=== PATIENT | female | born 1960 | race Two or more races ===

== ENCOUNTER 2020-08-26 20:34 | Inpatient (IN) | payer BC ==
[~2020-08-26] VITALS: Ht 160 cm; Wt 64.6 kg
--- NOTE | 2020-08-26 20:37 | NUR ---
Dr. Diaz at bedside for MSE.
[2020-08-26] MEDS ORDERED: ESCI10TA PO (20:49)
[2020-08-26] MEDS ORDERED: CHOL10002 PO (20:49)
[2020-08-26] MEDS ORDERED: OMEG1CAP18 PO (20:49)
[2020-08-26] MEDS ORDERED: ALPR0.5T8 PO (20:49)
[2020-08-26] MEDS ORDERED: BACL20TA PO (20:49)
[2020-08-26] MEDS ORDERED: MECL-159 PO (20:49)
[2020-08-26] MEDS ORDERED: LEVO88TA5 PO (20:49)
[2020-08-26] MEDS ORDERED: CYAN100T44 PO (20:49)
[2020-08-26] MEDS ORDERED: ASPI81TA31 PO (20:49)
--- NOTE | 2020-08-26 20:50 | NUR ---
Xray at bedside.
--- NOTE | 2020-08-26 21:16 | NUR ---
Patient unable to provide urine at this time, assisted to commode for bowel movement.
[2020-08-26] MEDS ORDERED: AZITHROMYCIN IV 500 MG in IV DEXTROSE 5% 250 ML IV ONE (21:30)
[2020-08-26] MEDS ORDERED: CEFTRIAXONE 1 G in IV DEXTROSE 5% 50 ML IV ONE (21:30)
[2020-08-26 21:32] LABS: BASOPHILS % (AUTO) 0.3 % (0.0-2.0); CREATININE 0.6 mg/dL (0.6-1.3); EOSINOPHILS # (AUTO) 0.4 K/uL (0.0-0.7); EOSINOPHILS % (AUTO) 2.6 % (0.0-7.0); HEMATOCRIT 38.2 % (31.2-41.9); HEMOGLOBIN 12.7 g/dL (10.9-14.3); LYMPHOCYTES # (AUTO) 2.3 K/uL (20.0-40.0); LYMPHOCYTES % (AUTO) 16.1 % (20.5-51.5); MEAN CORPUSCULAR HEMOGLOBIN 32.2 uug (24.7-32.8); MEAN CORPUSCULAR HGB CONC 33 g/dL (32.3-35.6); MEAN CORPUSCULAR VOLUME 96.6 fL (75.5-95.3); MONOCYTES # (AUTO) 0.9 K/uL (2.0-10.0); MONOCYTES % (AUTO) 6.2 % (0.0-11.0); NEUTROPHILS # (AUTO) 10.8 K/uL (1.8-8.9); NEUTROPHILS % (AUTO) 74.8 % (38.5-71.5); PLATELET COUNT (AUTO) 245 K/uL (179-408); POTASSIUM 3.3 mmol/L (3.5-5.1); RED BLOOD CELL COUNT(AUTO) 3.95 MIL/uL (3.63-4.92); WHITE BLOOD COUNT (AUTO) 14.4 K/uL (3.8-11.8)
--- NOTE | 2020-08-26 21:37 | NUR ---
Pt out of ER for CT.
[2020-08-26 21:38] LABS: BILIRUBIN,DIRECT 0.1 mg/dL (0.0-0.2); BILIRUBIN,TOTAL 0.4 mg/dL (0.2-1.0); TOTAL PROTEIN, SERUM 6.6 g/dL (6.4-8.2)
[2020-08-26] MEDS ORDERED: CEFTRIAXONE /D5W 50ML IVPB **ER PYXIS IV ONE (21:48)
[2020-08-26] MEDS ORDERED: AZITHROMYCIN 500MG/ D5W 250ML IVPB **ER PYXIS ONLY IV ONE (21:49)
--- NOTE | 2020-08-26 22:09 | NUR ---
Called [facility] for possible transfer, faxed facesheet and CT to .
[2020-08-26] MEDS ORDERED: ONDANSETRON 4 MG/2 ML VIAL IV ONE (22:15)
--- NOTE | 2020-08-26 22:20 | NUR ---
JENNIFER STARKS FROM [facility] CALLED BACK AND STATES DR LYMAN WILL RETURN CALL.
[2020-08-26] MEDS ORDERED: ONDANSETRON 4 MG/2 ML VIAL ONE (22:21)
--- NOTE | 2020-08-26 22:37 | NUR ---
[facility] FROM [facility] CALLED BACK CALLED AND STATED THAT DR LYMAN WILL NOT ACCEPT PATIENT.
--- NOTE | 2020-08-26 22:41 | NUR ---
CALLED [facility]. UNABLE TO ACCEPT PATIENT DUE TO MAX CAPACITY.
--- NOTE | 2020-08-26 22:46 | NUR ---
[facility] UNABLE TO ACCEPT PATIENT PER FÉLIX LORALITIGATION SPECIALIST OF [facility].
--- NOTE | 2020-08-26 23:18 | NUR ---
Called [facility] , spoke to Janett who will have neuro interventionalist speak to Dr Diaz.
--- NOTE | 2020-08-26 23:25 | NUR ---
[facility] unable to accept patient at this time due to max capacity.
--- NOTE | 2020-08-26 23:40 | NUR ---
Dr. Diaz speaking with [facility] Mc[facility] MD.
--- NOTE | 2020-08-26 23:42 | NUR ---
Called [facility]. Spoke to Venus from Transfer center who states they are at max capacity and unable to take patient at this time.
--- NOTE | 2020-08-26 23:54 | NUR ---
Received call back from Janett from [facility], no beds available, can't accept patient. made aware.
--- NOTE | 2020-08-27 00:15 | NUR ---
Called Dr. Tompkins @ , left voicemail.
--- NOTE | 2020-08-27 00:20 | NUR ---
Dr. Diaz speaking with Dr. Tompkins for neuro consult.
--- NOTE | 2020-08-27 00:26 | NUR ---
Called [facility] to page Hernando Baum DNP.
--- NOTE | 2020-08-27 00:32 | NUR ---
Dr. Diaz on panel call with Hernando Baum DNP. Patient accepted for admission to [facility], diagnosis: altered mental status, subarachnoid hemmorrhage.
[2020-08-27] MEDS ORDERED: Z GUARD REMEDY PASTE 57 GM TUBE TOP PRN (00:45)
[2020-08-27] MEDS ORDERED: MORPHINE SULFATE 2 MG/1 ML DISP.SYRIN IV PRN (00:45)
[2020-08-27] MEDS ORDERED: ONDANSETRON 4 MG/2 ML VIAL IV PRN (00:45)
[2020-08-27] MEDS ORDERED: MAGNESIUM HYDROXIDE 30 ML LIQUID UDC PO PRN (00:45)
[2020-08-27] MEDS ORDERED: HYDROCODONE/APAP 5-325MG TABLET PO PRN (00:45)
[2020-08-27 00:49] LABS: *BILIRUBIN,URIN NEGATIVE (NEGATIVE); *CLARITY,URINE CLEAR (CLEAR); *COLOR,URINE YELLOW (YELLOW); *KETONES,URINE NEGATIVE (NEGATIVE); *UROBILINOGEN,URINE 0.2 E.U./dl (NORMAL); LEUKOCYTE ESTERASE ,URINE 1+ (NEGATIVE); NITRITE, URINE NEGATIVE (NEGATIVE); UGLUCOSE NEGATIVE (NEGATIVE)
[2020-08-27 00:52] LABS: *BLOOD, URINE TRACE LYSED (NEGATIVE)
--- NOTE | 2020-08-27 01:10 | NUR ---
Report given to Ping HAYES Tele.
--- NOTE | 2020-08-27 01:40 | NUR ---
RECEIVED PT FROM ER [facility]IA [facility] UNDER DAVID RAMIREZ DNP. DX: SMALL VOLUME OF SUBARACHNOID HEMORRHAGE BELONGING LIST DON. ADMISSION PROCESS AND CARE PLAN INITIATED. SENIOR CARE ASSESSMENT DONE. SAFETY AND COMFORT PROVIDED. WILL CONTINUE TO MONITOR.
[2020-08-27 02:18] VITALS: BP 119/66
[2020-08-27 04:50] VITALS: BP 122/63
--- NOTE | 2020-08-27 06:17 | NUR ---
PT SLEPT INTERMITTENTLY. PT IN NO ACUTE DISTRESS. PRESCRIBED MEDICATION GIVEN AND PT TOLERATED IT WELL. SAFETY AND COMFORT PROVIDED. ALL NEEDS ARE MET. WILL ENDORSE TO INCOMING NURSE FOR CONTINUITY OF CARE. Addendum: 08/27/20 at 0618 by ORACIO BRITO RN wrong pt
--- NOTE | 2020-08-27 06:18 | NUR ---
PT SLEPT INTERMITTENTLY. PT IN NO ACUTE DISTRESS. PT CONTINENT AND FALL PRECAUTION. SAFETY AND COMFORT PROVIDED. ALL NEEDS ARE MET. WILL ENDORSE TO INCOMING NURSE FOR CONTINUITY OF CARE.
[2020-08-27] MEDS: PANTOPRAZOLE SODIUM 40 MG TABLET.DR PO SCH (06:28)
[2020-08-27 07:59] VITALS: BP 114/63
[2020-08-27 11:53] VITALS: BP 100/59
[2020-08-27 15:28] VITALS: BP 97/57
[2020-08-27] MEDS: ACETAMINOPHEN 325 MG TABLET PO PRN (16:39)
[2020-08-27] MEDS ORDERED: SWABABLE VALVE TRANSFER SET EA MC ONE (16:44)
[2020-08-27] MEDS ORDERED: IV NORMAL SALINE 250 ML IV ONE (16:44)
[2020-08-27] MEDS ORDERED: IOHEXOL 350 100 ML INFUS..BTL ONE (16:44)
[2020-08-27 20:38] VITALS: BP 101/54
--- NOTE | 2020-08-27 21:00 | NUR ---
pt rec'd in bed. no voiced complaints. AOx4. Sinus rhythm. VS WNL. Due meds given and tolerated well. Refused soft collar at this time.
[2020-08-27] MEDS: CEFTRIAXONE 1 G in IV DEXTROSE 5% 50 ML IV SCH (22:00)
--- NOTE | 2020-08-28 | NUR ---
up to bathroom w/ min. assist. voided fairly well. IV site patent and intact. due meds given.
[2020-08-28 00:15] VITALS: BP 104/69
[2020-08-28] MEDS: AZITHROMYCIN IV 500 MG in IV DEXTROSE 5% 250 ML IV SCH ×2 (00:30→23:33)
[2020-08-28 04:51] VITALS: BP 106/69
[2020-08-28] MEDS: PANTOPRAZOLE SODIUM 40 MG TABLET.DR PO SCH (06:30)
[2020-08-28 07:09] LABS: BASOPHILS % (AUTO) 0.4 % (0.0-2.0); EOSINOPHILS # (AUTO) 0.4 K/uL (0.0-0.7); EOSINOPHILS % (AUTO) 7.3 % (0.0-7.0); HEMATOCRIT 36.7 % (31.2-41.9); HEMOGLOBIN 12.5 g/dL (10.9-14.3); LYMPHOCYTES # (AUTO) 2.1 K/uL (20.0-40.0); LYMPHOCYTES % (AUTO) 35.7 % (20.5-51.5); MEAN CORPUSCULAR HEMOGLOBIN 33.2 uug (24.7-32.8); MEAN CORPUSCULAR HGB CONC 34 g/dL (32.3-35.6); MEAN CORPUSCULAR VOLUME 97.1 fL (75.5-95.3); MONOCYTES # (AUTO) 0.6 K/uL (2.0-10.0); MONOCYTES % (AUTO) 10.8 % (0.0-11.0); NEUTROPHILS # (AUTO) 2.7 K/uL (1.8-8.9); NEUTROPHILS % (AUTO) 45.8 % (38.5-71.5); PLATELET COUNT (AUTO) 266 K/uL (179-408); RED BLOOD CELL COUNT(AUTO) 3.78 MIL/uL (3.63-4.92); WHITE BLOOD COUNT (AUTO) 5.9 K/uL (3.8-11.8)
[2020-08-28 07:30] LABS: CREATININE 0.7 mg/dL (0.6-1.3); MAGNESIUM 2.4 mg/dL (1.8-2.4); PHOSPHOROUS 3.1 mg/dL (2.5-4.9); POTASSIUM 3.3 mmol/L (3.5-5.1)
[2020-08-28 08:00] VITALS: BP 96/61
[2020-08-28] MEDS ORDERED: POTASSIUM CHLORIDE 10 MEQ TAB.PRT.SR PO ONE (10:00)
[2020-08-28 11:00] VITALS: BP 115/82
[2020-08-28 15:22] VITALS: BP 96/58
--- NOTE | 2020-08-28 16:46 | NUR ---
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 Patient is a 60 year old female, admitted to [facility] on 08/26/20. SW to follow-up with this patient to complete the SS assessment.
[2020-08-28 20:03] VITALS: BP 105/67
[2020-08-28] MEDS: CEFTRIAXONE 1 G in IV DEXTROSE 5% 50 ML IV SCH (22:27)
[2020-08-29] VITALS: BP 121/68
[2020-08-29 04:27] VITALS: BP 110/62
[2020-08-29] MEDS: PANTOPRAZOLE SODIUM 40 MG TABLET.DR PO SCH (06:19)
[2020-08-29 07:48] LABS: BASOPHILS % (AUTO) 0.7 % (0.0-2.0); EOSINOPHILS # (AUTO) 0.5 K/uL (0.0-0.7); EOSINOPHILS % (AUTO) 7.5 % (0.0-7.0); HEMATOCRIT 38.9 % (31.2-41.9); HEMOGLOBIN 13.2 g/dL (10.9-14.3); LYMPHOCYTES % (AUTO) 31.4 % (20.5-51.5); MEAN CORPUSCULAR HEMOGLOBIN 32.8 uug (24.7-32.8); MEAN CORPUSCULAR HGB CONC 34 g/dL (32.3-35.6); MEAN CORPUSCULAR VOLUME 96.9 fL (75.5-95.3); MONOCYTES # (AUTO) 0.6 K/uL (2.0-10.0); NEUTROPHILS # (AUTO) 3.2 K/uL (1.8-8.9); NEUTROPHILS % (AUTO) 50.4 % (38.5-71.5); PLATELET COUNT (AUTO) 326 K/uL (179-408); RED BLOOD CELL COUNT(AUTO) 4.02 MIL/uL (3.63-4.92); WHITE BLOOD COUNT (AUTO) 6.4 K/uL (3.8-11.8)
[2020-08-29 07:57] LABS: CREATININE 0.7 mg/dL (0.6-1.3); POTASSIUM 4.1 mmol/L (3.5-5.1)
--- NOTE | 2020-08-29 08:00 | NUR ---
Awake, alert, oriented x 4. Not in distress
[2020-08-29 11:15] VITALS: BP 112/75
[2020-08-29 15:58] VITALS: BP 119/70
--- NOTE | 2020-08-29 16:04 | NUR ---
Extrusion Die Repairer Consultation: reason for consultation is altered mental status, subarachnoid hemorrhage SW met with this patient to complete a social studies department chair assessment and PHQ-9. Patient is a 60 year old female, who was sitting up in her hospital bed. Patient is alert, oriented x 4, receptive to meeting with this SW. Patient was brought in to the ED by paramedics on 08/26/20 after her found her fallen on the floor at home. Patient claims she did not lose consciousness, however could not recall the reason for the fall. Patient reported testing positive for COVID-19 about 3 weeks ago. Patient lives at home with her , and is independent with most of her ADL's. Patient's assists with transportation, as patient is not able to drive due to changes in vision. Patient's daughter Norma called in on FaceTime during this interview, and participated in the interview. Patient and daughter report that patient has a history of Depression, and at times Anxiety, however is well managed with Lexapro and Xanax. Patient stated that her PCP is Dr. Alexis Hansen, and her neurologist is Dr. Enmanuel Malik. SW administered the PHQ-9 to assess patient's mood and behavior, and patient reported no recent changes in her mood and behavior, discussing some of the activities she enjoys doing while at [facility]. Patient scored a 0 on the PHQ-9. However patient expressed frustration about not having a clear explanation from the attending neurologist yet, and became slightly tearful for this reason. SW acknowledged and validated patient's feelings. SW stated that SW would relay her request for an explanation from the neurologist regarding the findings from current hospitalization to ABIGAIL See. Patient expressed gratitude. SW assessed patient's needs for supportive services, and patient stated that she feels she has great physicians that monitor her health, and stated that she did not need any additional supportive services. DC plans were discussed, and patient and daughter stated that the plan is for patient to return home with her . SW provided education on possible changes in mood and behavior following strokes, and provided informational material on Empowerment After Stroke, Stroke Survivor Hotline [phone], Stroke Family Warmline 976-8-GSEQUN, and informational material on Caregiver Guide to Stroke. Patient was receptive to this information, and thanked this SW for the information and support provided. Patient's daughter Norma asked to speak with this SW, and patient provided verbal consent. SW will follow-up Norma. SW informed ABIGAIL See about patient's frustration with not having a clear explanation from patient's attending neurologist, and Mayi stated that she will be following up with the neurologist's office. No further SS interventions needed at this time, however SW will remain available to the patient and patient's family, as needed.
--- NOTE | 2020-08-29 17:00 | NUR ---
Per patient's daughter's request, this SW called patient's daughter Norma, . Norma expressed similar frustrations like the patient had during the assessment, regarding not having a clear explanation of the findings of patient's tests/scans that were ordered by neurology. JENIFFER acknowledged Norma's frustration, and stated that patient's nurse has been attempting to contact the neurologist, and was going to do so again. JENIFFER stated that SW will follow-up with nursing to support communication. Norma expressed agreement and thanked SW for her support. SW to follow-up with nursing.
[2020-08-29] MEDS: ACETAMINOPHEN 325 MG TABLET PO PRN (18:13)
--- NOTE | 2020-08-29 18:40 | NUR ---
With discharge order. Per RN yesterday, Dr. Mcgregor cleared patient for discharge. Saline lock removed. Tele removed. DC instruction given to patient, verbalized understanding. Went home per wheelchair in fair condition, not in distress, afebrile.
== END 2020-08-29 18:40 | disposition home or self-care (01) | DRG 85 ==
LOC: ER 20:35 → TELE3 23:55 → TELE 08-28 17:00
PROVIDERS: ADMIT Internal Medicine; ATTEND Family Medicine
DX: S06.6X0A Traumatic subarachnoid hemorrhage without loss of consciousness, initial encounter (principal); J15.9 Unspecified bacterial pneumonia; G35 Multiple sclerosis; Z86.16 Personal history of COVID-19; M19.90 Unspecified osteoarthritis, unspecified site; W19.XXXA Unspecified fall, initial encounter; Y93.9 Activity, unspecified; Y92.009 Unspecified place in unspecified non-institutional (private) residence as the place of occurrence of the external cause; S00.03XA Contusion of scalp, initial encounter; Z87.01 Personal history of pneumonia (recurrent); Z88.0 Allergy status to penicillin
CPT/HCPCS: 36415; 70030-TC; 70450; 70496; 71045; 72125; 83605; 83735; 84100; 85025; 85730; 87040; 87086; 93005; 93307; A4663; G0378; J0456; J0696; J2405; J3490; J7040; J7050; J7060; Q9967